=== PATIENT | male | born 1980 | race African-American/Black ===

== ENCOUNTER 2017-06-22 11:45 | Emergency (ER) | payer OTHER ==
[~2017-06-22] VITALS: Ht 188 cm; Wt 78.1 kg
[~2017-06-22 11:45] MED LIST: CYCL10TA7 PO; NAPR-58 PO
[2017-06-22] MEDS ORDERED: TIZA4TAB4 PO (12:13)
[2017-06-22] MEDS ORDERED: IBUP-2070 PO (12:13)
[2017-06-22 14:19] VITALS: BP 140/90
== END 2017-06-22 14:22 | disposition home or self-care (01) ==
LOC: EMS 11:46
DX: S39.012A Strain of muscle, fascia and tendon of lower back, initial encounter (principal); X58.XXXA Exposure to other specified factors, initial encounter; Y93.89 Activity, other specified; Y92.89 Other specified places as the place of occurrence of the external cause; Y99.8 Other external cause status
CPT/HCPCS: 72100; 99284

== ENCOUNTER 2019-07-20 10:24 | Emergency (ER) | payer MEDICAID ==
[~2019-07-20] VITALS: Ht 188 cm; Wt 80.0 kg
[~2019-07-20 10:24] MED LIST changes: -CYCL10TA7 PO; +IBUP-2070 PO; -NAPR-58 PO; +TIZA4TAB5 PO
[2019-07-20] MEDS ORDERED: ACETAMINOPHEN 500 MG TABLET PO ONE (11:15)
[2019-07-20 11:25] VITALS: BP 131/84
[2019-07-20] MEDS ORDERED: OSELTAMIVIR PHOSPHATE 75 MG CAPSULE PO ONE (11:45)
[2019-07-20] MEDS ORDERED: IBUPROFEN 800 MG TABLET PO ONE (11:45)
== END 2019-07-20 11:47 | disposition home or self-care (01) ==
LOC: EMS 10:25
DX: J11.1 Influenza due to unidentified influenza virus with other respiratory manifestations (principal); Z98.890 Other specified postprocedural states